=== PATIENT | female | born 1960 | race African-American/Black ===

== ENCOUNTER 2017-01-01 06:59 | Emergency (ER) | payer OTHER ==
[~2017-01-01] VITALS: Ht 165.1 cm; Wt 90.7 kg
[2017-01-01 07:03] VITALS: BP 126/66
--- NOTE | 2017-01-01 07:15 | ED GENERAL ADULT ---
History of Present Illness General Chief Complaint: Upper Respiratory Sx/Fever Stated Complaint: ?BRONCHITIS Source: patient Exam Limitations: no limitations Vital Signs & Intake/Output Vital Signs & Intake/Output Vital Signs Date Time Temp Pulse Resp B/P Pulse O2 O2 Flow FiO2 Ox Delivery Rate 01/01 0703 97.9 98 18 126/66 94 Room Air Allergies Coded Allergies: NO KNOWN ALLERGIES (11/24/12) Reconcile Medications Clarithromycin (Biaxin) 500 MG TABLET 1 TAB PO BID BRONCHITIS Triage Note: PT STATES THAT SHE STARTED WITH COUGH YESTERDAY AND NOW SHE IS COUGHING UP LANDA SPUTUM Triage Nurses Notes Reviewed? yes Onset: Abrupt Duration: day(s): Timing: recent history HPI: 01/01/17 This is a 56-year-old female who presents to the emergency department complaining of cough productive of landa sputum. The patient states that she runny nose and cough for the past several days, now the sputum has turned landa. 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 She does receive pneumococcal vaccine. The onset of the symptoms were abrupt, the duration has been 2-3 days, the severity is significant as her symptoms required her to come to the emergency department for care. She has no shortness of breath or fever. Past History Travel History Traveled to [place] past 21 day No Medical History Any Pertinent Medical History? see below for history Neurological: NONE EENT: NONE Cardiovascular: NONE Respiratory: NONE Gastrointestinal: NONE Hepatic: NONE Renal: NONE Musculoskeletal: NONE Psychiatric: NONE Endocrine: diabetes Blood Disorders: NONE Cancer(s): NONE Surgical History Surgical History: splenectomy Psychosocial History What is your primary language [place] Tobacco Use: Never used ETOH Use: denies use Illicit Drug Use: denies illicit drug use Family History Hx Contributory? No Review of Systems Review of Systems Constitutional: Denies: fever. EENTM: Denies: visual changes. Respiratory: Reports: cough, sputum production. Denies: short of breath. Cardiovascular: Denies: chest pain. GI: Denies: abdominal pain. Genitourinary: Denies: dysuria. Musculoskeletal: Denies: back pain. Skin: Reports: no symptoms. Neurological/Psychological: Reports: no symptoms. Hematologic/Endocrine: Reports: no symptoms. Immunologic/Allergic: Reports: no symptoms. Physical Exam Physical Exam General Appearance: well developed/nourished, alert, awake, anxious, mild distress Head: atraumatic, normal appearance Eyes: Bilateral: normal appearance, PERRL, EOMI. Ears, Nose, Throat: normal pharynx, normal ENT inspection Neck: normal inspection, supple Respiratory: normal breath sounds, chest non-tender, no respiratory distress Cardiovascular: regular rate/rhythm Peripheral Pulses: 4+ radial (R), 4+ radial (L) Gastrointestinal: non-tender Back: normal range of motion Extremities: no edema, no calf tenderness Neurologic/Psych: no motor/sensory deficits, awake, alert, oriented x 3 Skin: intact, normal color, warm/dry Comments: The patient will take Biaxin as directed and follow-up with her doctor on Thursday. Core Measures ACS in differential dx? No CVA/TIA Diagnosis: No Severe Sepsis Present: No Septic Shock Present: No Progress Differential Diagnoses I considered the following diagnoses in my evaluation of the patient: [ Bronchitis, pneumonia, pneumothorax, pulmonary embolism] I considered PE however the patient has an upper respiratory tract infection, a cough productive of yellow sputum, she has no shortness of breath, no tachycardia, no calf swelling or tenderness, she is not on exogenous estrogen. Plan of Care: Follow up with her doctor on thursday. Initial ED EKG: none Departure Departure Disposition: HOME OR SELF CARE Condition: Stable Clinical Impression Primary Impression: Bronchitis Referrals: PATIENT HAS NO PRIMARY CARE DR (PCP/Family) Departure Forms: Customer Survey General Discharge Information Prescriptions: Current Visit Scripts Clarithromycin (Biaxin) 1 TAB PO BID #20 TAB Critical Care Note Critical Care Note Critical Care Time: non-applicable
[2017-01-01] MEDS ORDERED: BIAXIN500 M1 PO (07:22)
== END 2017-01-01 07:26 ==
LOC: ERH 06:59
DX: J40 Bronchitis, not specified as acute or chronic (principal)